=== PATIENT | male | born 1970 | race Caucasian/White ===

== ENCOUNTER 2020-12-05 13:41 | Emergency (ER) | payer OTHER ==
[~2020-12-05] VITALS: Ht 188 cm; Wt 90.7 kg
--- NOTE | 2020-12-05 14:01 | NUR ---
Pt was cutting/working with plastic, knife penetrated dorsal surface left hand. PMS intact, cap refill < 2 sec.
[2020-12-05] MEDS ORDERED: CEPH250C PO (14:26)
[2020-12-05] MEDS ORDERED: SULF1TAB48 PO (14:26)
[2020-12-05] MEDS ORDERED: SULFAMETH/TRIMETH 800/160 MG TABLET PO ONE (14:30)
[2020-12-05] MEDS ORDERED: NEOMY/BACITRA/POLYMYXIN B OINT UD PACKET TP ONE ×2 (14:30→14:37)
[2020-12-05] MEDS ORDERED: SULFAMETH/TRIMETH 800/160 MG TABLET ONE (14:37)
== END 2020-12-05 14:40 | disposition home or self-care (01) ==
LOC: ER 13:42
DX: S61.412A Laceration without foreign body of left hand, initial encounter (principal); W26.0XXA Contact with knife, initial encounter; Y93.89 Activity, other specified; Y92.89 Other specified places as the place of occurrence of the external cause; M79.5 Residual foreign body in soft tissue; M19.042 Primary osteoarthritis, left hand; T23.062A Burn of unspecified degree of back of left hand, initial encounter; X17.XXXA Contact with hot engines, machinery and tools, initial encounter
CPT/HCPCS: 73130; A4663

== ENCOUNTER 2020-12-14 19:59 | Emergency (ER) | payer SELFPAY ==
[~2020-12-14 19:59] MED LIST: CEPH250C PO; SULF1TAB48 PO
--- NOTE | 2020-12-14 20:35 | NUR ---
Patient was called to be traiged but was not present in the waiting room or outside of ER.
--- NOTE | 2020-12-14 21:00 | NUR ---
Patient was called for the 2nd time. Patient was not preent in the waiting room or outside of the ER.
--- NOTE | 2020-12-14 21:12 | NUR ---
Patient was called for the 3rd time. Patient was not present. Patient was not seen by ERMD or triaged.
== END 2020-12-14 21:13 | disposition left against medical advice (07) ==
LOC: ER 20:00
DX: Z53.21 Procedure and treatment not carried out due to patient leaving prior to being seen by health care provider (principal)